=== PATIENT | male | born 1955 | race Caucasian/White ===

== ENCOUNTER → 2022-04-01 | Outpatient (CLI) | payer MEDICARE, OTHER ==
[2022-04-01 14:47] VITALS: BMI 35.6
== END ==
LOC: DBWHC3 13:25
PROVIDERS: ATTEND Internal Medicine
DX: E11.9 Type 2 diabetes mellitus without complications (principal); Z88.1 Allergy status to other antibiotic agents
CPT/HCPCS: G0108 ×3

== ENCOUNTER 2022-06-24 22:00 | Emergency (ER) | payer MEDICARE ==
[2022-06-24] MEDS ORDERED: FLUORESCEIN STRIPS 1 MG STRIP BOTH EYES ONE (22:10)
[2022-06-24] MEDS ORDERED: PROPARACAINE 0.5% OPHTH DROPS 15 ML BTL BOTH EYES STA (22:10)
[2022-06-24] MEDS ORDERED: ERYTHROMYCIN 5 MG/GM OPHTH OINT 3.5 GM TUBE BOTH EYES STA (22:11)
[2022-06-24] MEDS ORDERED: PROPARACAINE 0.5% OPHTH DROPS 15 ML BTL ONE (22:16)
[2022-06-24] MEDS ORDERED: DIPH,PERTUS(ACELL)TETVAC-LF 0.5 ML VIAL IM ONE (22:44)
--- NOTE | 2022-06-24 22:49 | ED ---
Eye Problem HPI - General Chief complaint: Eye Problems Stated complaint: left eye irritation Time Seen by Provider: 06/24/22 22:10 Source: patient Mode of arrival: ambulatory Limitations: no limitations - History of Present Illness Initial comments: This is a pleasant 67-year-old male who presents to emergency department after sustaining an injury to his left eye. Patient states he was grinding metal with a grinding wheel. Patient was not wearing safety glasses. Patient states this occurred about one hour ago. Patient feels like there is a foreign body in his right eye which is very irritating. Last tetanus is unknown. No other injuries. Patient does wear corrective vision. No headache, no fever or chills, no changes in vision or hearing, no sore throat or difficulty with speech, no neck pain, no chest pain or shortness of breath, no abdominal pain, no nausea or vomiting, no changes in urination or bowel movements, no numbness or tingling, no extremity pain, no skin rashes or lesions. Past medical, surgical, social, and family history reviewed. MD chief complaint: eye pain, eye redness, eye injury - Related Data Allergies Allergy/AdvReac Type Severity Reaction Status Date / Time amoxicillin [From Augmentin] Allergy Unknown Verified 06/24/22 22:09 clavulanic acid Allergy Unknown Verified 06/24/22 22:09 [From Augmentin] Review of Systems ROS Statement: Those systems with pertinent positive or pertinent negative responses have been documented in the HPI. ROS Other: All systems not noted in ROS Statement are negative. Past Medical History Past Medical History: Coronary Artery Disease (CAD), Diabetes Mellitus, GERD/Reflux, Hypertension, Prostate Disorder, Sleep Apnea/CPAP/BIPAP History of Any Multi-Drug Resistant Organisms: None Reported Additional Past Surgical History / Comment(s): Colonoscopy, mx foot surgeries, Past Psychological History: No Psychological Hx Reported Smoking Status: Never smoker Past Alcohol Use History: Occasional Past Drug Use History: None Reported General Exam - General Exam Comments Initial Comments: Minimal distress, does not appear to be ill or toxic. Vital signs reviewed Limitations: no limitations General appearance: alert, in distress (Minimal) Head exam: Present: atraumatic, normocephalic, normal inspection Eye exam: Present: PERRL, EOMI. Absent: scleral icterus, conjunctival injection, nystagmus, periorbital swelling, periorbital tenderness Pupils: Present: normal accommodation ENT exam: Present: normal exam, normal oropharynx, mucous membranes moist, TM's normal bilaterally, normal external ear exam. Absent: mucous membranes dry Neck exam: Present: normal inspection Respiratory exam: Present: normal lung sounds bilaterally. Absent: respiratory distress, wheezes, rales, rhonchi, stridor Cardiovascular Exam: Present: regular rate, normal rhythm, normal heart sounds. Absent: systolic murmur, diastolic murmur, rubs, gallop, clicks Extremities exam: Present: normal inspection Back exam: Present: normal inspection Neurological exam: Present: alert, oriented X3, CN II-XII intact, normal gait. Absent: motor sensory deficit Psychiatric exam: Present: normal affect, normal mood Skin exam: Present: warm, dry, intact, normal color. Absent: rash Course Vital Signs 06/24/22 22:04 Temperature 98.4 F Pulse Rate 63 Respiratory 22 Rate Blood Pressure 155/79 O2 Sat by Pulse 98 Oximetry Procedures - Forgein Body Removal Eye Site: Left Location in eye(s): Left eye Anesthetic Used: Proparacaine Eye Exam Technique: Fluorescein, Slit Lamp Foreign Body Suspected: Metal, Other (Rest ring) Forgein Body Removal Technique: Needle, [place]brush Remaining Debris: No Patient Tolerated: well Additional Comments: We'll order a CT the orbits as the patient was using a high velocity grinding wheel, metal, was not wearing safety glasses. There was no evidence of Katina's test on exam however. Anterior chamber was clear. Eye pressure was normal at 18 mmHg. Medical Decision Making - Medical Decision Making Tetanus was updated. CT of the orbits ordered. Patient will require reevaluation by the wait staff. Disposition Clinical Impression: Acute foreign body of left cornea, Corneal rust ring of left eye Disposition: HOME SELF-CARE Condition: Good Instructions (If sedation given, give patient instructions): Eye Foreign Body (ED) Additional Instructions: Antibiotic ointment, 1 cm to the affected eye every 6 hours until you see the wait staff. Follow-up with your regular physician as directed. Return to the ER immediately if any symptoms worsen, new symptoms arise, or any other problems develop. Is patient prescribed a controlled substance at d/c from ED?: No Referrals: Manuel Garcia MD [STAFF PHYSICIAN] - 06/25/22 8:00 am Time of Disposition: 00:21
[2022-06-24] MEDS ORDERED: ACETAMINOPHEN TAB 500 MG TAB PO STA (23:04)
--- NOTE | 2022-06-24 23:27 | CT ---
EXAMINATION TYPE: CT orbits wo con DATE OF EXAM: 06/24/2022 COMPARISON: None HISTORY: metal FB CT DLP: 321.2 mGycm Automated exposure control for dose reduction was used. Images obtained with no contrast from the bottom of the maxilla to the top of the frontal sinuses. FINDINGS: The orbital margins are intact. No evidence of orbital blowout fracture. No retro-orbital mass. The o rbital margins are intact. No evidence of orbital foreign body. The zygomatic arches appear normal. Maxilla is intact. No evidence of sinusitis. The nasal bone is in tact. IMPRESSION: Negative CT scan of the orbits. No evidence of orbital foreign body or mass.
[2022-06-25 00:35] VITALS: BP 144/84; PULSE 71; RESP 24; TEMP 98
== END 2022-06-25 00:33 | disposition home or self-care (01) ==
LOC: EC 22:00 → SUPCPDRO 22:00 → EC 06-25 00:33
DX: T15.92XA Foreign body on external eye, part unspecified, left eye, initial encounter (principal); Z23 Encounter for immunization; I25.10 Atherosclerotic heart disease of native coronary artery without angina pectoris; E11.9 Type 2 diabetes mellitus without complications; K21.9 Gastro-esophageal reflux disease without esophagitis; I10 Essential (primary) hypertension; Z88.0 Allergy status to penicillin; Z88.1 Allergy status to other antibiotic agents
CPT/HCPCS: 65222; 70480; 90471; 90715; 99283

== ENCOUNTER 2022-08-28 20:20 | Observation (INO) | payer MEDICARE ==
[2022-08-28] MEDS ORDERED: ASPIRIN 81 MG PO STA (20:49)
[2022-08-28] MEDS ORDERED: NITROGLYCERIN SL TABS 0.4 MG TAB SUBLINGUAL STA ×3 (20:49→21:23)
[2022-08-28] MEDS ORDERED: SODIUM CHLORIDE 0.9% 1,000 ML IV STA (20:49)
[2022-08-28 21:20] LABS: Basophils % (A) 0 %; Eosinophils # (A) 0.3 k/uL (0-0.7); Eosinophils % (A) 3 %; HCT 38.1 % (39.0-53.0); HGB 13.1 gm/dL (13.0-17.5); Lymphocytes # (A) 1.7 k/uL (1.0-4.8); Lymphocytes % (A) 18 %; MCH 28.6 pg (25.0-35.0); MCHC 34.3 g/dL (31.0-37.0); MCV 83.3 fL (80.0-100.0); Monocytes # (A) 0.4 k/uL (0-1.0); Monocytes % (A) 5 %; Neutrophils # (A) 6.8 k/uL (1.3-7.7); Neutrophils % (A) 73 %; Platelet Count 209 k/uL (150-450); RBC 4.58 m/uL (4.30-5.90); RDW 13.6 % (11.5-15.5); WBC 9.3 k/uL (3.8-10.6)
--- NOTE | 2022-08-28 21:21 | ED ---
Chest Pain HPI - General Chief Complaint: Chest Pain Stated Complaint: Chest pain Time Seen by Provider: 08/28/22 20:41 Source: patient Mode of arrival: wheelchair Limitations: no limitations - History of Present Illness Initial Comments: Patient is a 67-year-old male presenting with chief complaint of chest pain. History of CAD, diabetes, GERD, hypertension. Pain started about 2 hours ago. It is located in the center of the chest, it is a burning and heaviness in character. Patient has a history of blockage of the LAD, has not had any issues since 2013. He admits to nausea, difficulty breathing, GERD. He denies palpitations, dizziness, headache, radiation of pain down the arms, neck, or to the back. No vomiting. - Related Data Allergies Allergy/AdvReac Type Severity Reaction Status Date / Time amoxicillin [From Augmentin] Allergy Unknown Verified 08/28/22 20:23 clavulanic acid Allergy Unknown Verified 08/28/22 20:23 [From Augmentin] Review of Systems ROS Statement: Those systems with pertinent positive or pertinent negative responses have been documented in the HPI. ROS Other: All systems not noted in ROS Statement are negative. EKG Findings - EKG Comments: EKG Findings:: Sinus bradycardia. Ventricular rate 52. FL interval 168. QRS 100. QT 405. QTc 385. No ST deviation or T-wave inversion. This EKG was also interpreted by my attending. Past Medical History Past Medical History: Coronary Artery Disease (CAD), Diabetes Mellitus, GERD/Reflux, Hypertension, Prostate Disorder, Sleep Apnea/CPAP/BIPAP Additional Past Medical History / Comment(s): covid + 03/2022 History of Any Multi-Drug Resistant Organisms: None Reported Past Surgical History: Heart Catheterization With Stent Additional Past Surgical History / Comment(s): Colonoscopy, mx foot surgeries, Past Psychological History: No Psychological Hx Reported Smoking Status: Never smoker Past Alcohol Use History: Occasional Past Drug Use History: None Reported General Exam Limitations: no limitations General appearance: alert, in no apparent distress Head exam: Present: atraumatic, normocephalic, normal inspection Eye exam: Present: normal appearance Neck exam: Present: normal inspection Respiratory exam: Present: normal lung sounds bilaterally. Absent: respiratory distress, wheezes, rales, rhonchi, stridor Cardiovascular Exam: Present: regular rate, normal rhythm, normal heart sounds. Absent: systolic murmur, diastolic murmur, rubs, gallop, clicks Neurological exam: Present: alert, oriented X3, CN II-XII intact Psychiatric exam: Present: normal affect, normal mood Skin exam: Present: warm, dry, intact, normal color. Absent: rash Course Vital Signs 08/28/22 08/28/22 08/28/22 20:23 20:57 21:00 Temperature 97.8 F Pulse Rate 57 L 53 L Pulse Rate [ 52 L Family Consultant ] Respiratory 22 20 Rate Blood Pressure 170/67 162/85 O2 Sat by Pulse 98 98 Oximetry 08/28/22 08/28/22 21:30 22:08 Temperature Pulse Rate 51 L 49 L Pulse Rate [ Family Consultant ] Respiratory 18 18 Rate Blood Pressure 146/73 164/74 O2 Sat by Pulse 97 99 Oximetry Chest Pain MDM - MDM Condition is a 67-year-old male with history of CAD, diabetes, GERD, and hypertension presenting with chief complaint of chest pain. It started about 2 hours ago. It is a burning and heaviness in his chest with no radiation. Admits to some nausea no vomiting. On physical examination heart and lungs are clear to auscultation. Patient is bradycardic. He is given aspirin and nitroglycerin for the pain. EKG shows no ST deviation or T wave inversion. Troponin is less than 0.012. BNP is 202. CBC shows no leukocytosis or anemia. Coags are WNL. Magnesium is 1.4, patient is placed on IV replacement. Urine shows 3+ glucose. Chest x-ray shows no acute process. Patient will be admitted for observation as he had a heart sore of 6. He is agreeable with this plan, on reassessment patient reports improvement in pain, he is resting comfortably. I spoke with Dr. Wilson who agreed to admit the patient. I discussed this case with my attending Dr. Castillo Disposition Clinical Impression: Chest pain Disposition: ADMITTED IP TO THIS [facility] Condition: Fair Time of Disposition: 22:50 Decision to Admit Reason: Admit from EC Decision Date: 08/28/22 Decision Time: 22:50
[2022-08-28 21:24] LABS: INR 0.9 (<1.2); Prothrombin Time 10.3 sec (9.0-12.0)
[2022-08-28 21:27] LABS: ALT 63 U/L (4-49); AST 50 U/L (17-59); African American GFR (CKD) >90 (>60 ml/min/1.73 sqM); Albumin 4.3 g/dL (3.5-5.0); Alkaline Phosphatase 53 U/L (38-126); Amylase 71 U/L (30-110); Anion Gap 10 mmol/L; Blood Urea Nitrogen 10 mg/dL (9-20); Calcium 9.4 mg/dL (8.4-10.2); Carbon Dioxide 25 mmol/L (22-30); Chloride 103 mmol/L (98-107); Glucose 214 mg/dL (74-99); Lipase 421 U/L (23-300); Magnesium 1.4 mg/dL (1.6-2.3); Non-African American GFR(CKD) >90 (>60 ml/min/1.73 sqM); Potassium 4.3 mmol/L (3.5-5.1); Sodium 138 mmol/L (137-145); Total Bilirubin 0.4 mg/dL (0.2-1.3); Total Protein 6.3 g/dL (6.3-8.2)
[2022-08-28] MEDS ORDERED: Magnesium Replacement Protocol 1 EACH MISC MISCELLANE PRN (22:03)
[2022-08-28 22:11] LABS: Appearance,Urine Clear (Clear); Bilirubin,Urine Negative (Negative); Blood,Urine Negative (Negative); Color,Urine Colorless; Glucose,Urine (UA) 3+ (Negative); Ketones,Urine Negative (Negative); Leukocyte Esterase,Urine Negative (Negative); Nitrite,Urine Negative (Negative); Protein,Urine Negative (Negative); Specific Gravity,Urine 1.005 (1.001-1.035); Urobilinogen,Urine <2.0 mg/dL (<2.0)
[2022-08-28] MEDS ORDERED: NALOXONE 0.4 MG/ML 1 ML VIAL IV PRN (22:49)
--- NOTE | 2022-08-28 23:10 | XR ---
EXAMINATION TYPE: XR chest 2V DATE OF EXAM: 08/28/2022 COMPARISON: NONE HISTORY: Wrist pain TECHNIQUE: 2 views FINDINGS: Heart is normal. Lungs are clear. Diaphragm is normal. Bony thorax is intact. There are yarelis st leads. IMPRESSION: Normal chest.
[2022-08-28] MEDS: MAGNESIUM SULFATE-D5W PMX 1 GM in DEXTROSE/WATER 1 100ML.BAG IVPB SCH (23:17)
[2022-08-29] MEDS: MAGNESIUM SULFATE-D5W PMX 1 GM in DEXTROSE/WATER 1 100ML.BAG IVPB SCH ×2 (01:00→02:36)
--- NOTE | 2022-08-29 02:25 | P.HPIM ---
History of Present Illness H&P Date: 08/28/22 Chief Complaint: chest pain 67 year old male with CAD stents 2013, DM , Hypertension patient comes in due to sudden onset chest pain while washing dishes, describes as central non radiating squeezing burning chest pain , associated with SOB, nausea and palpitations, no vomiting, no dizziness, no profuse sweating. after pain onset, patient did not take anything, and he drove himself here to the hospital and pain improved after receiving meds inthe ED. he has not had any other episodes in a while, denies any recent cardiac workup. he reports recent trip to [facility] , just recently took a 20 [address] flight back to the [facility], denies any history of blood clots. workup in the ED , trops negative , EKG no acute ST changes Review of Systems Pertinent positives as noted in HPI. All other systems were reviewed and are negative Past Medical History Past Medical History: Coronary Artery Disease (CAD), Diabetes Mellitus, GERD/Reflux, Hypertension, Prostate Disorder, Sleep Apnea/CPAP/BIPAP Additional Past Medical History / Comment(s): covid + 03/2022 History of Any Multi-Drug Resistant Organisms: None Reported Past Surgical History: Heart Catheterization With Stent Additional Past Surgical History / Comment(s): Colonoscopy, mx foot surgeries, Past Psychological History: No Psychological Hx Reported Smoking Status: Never smoker Past Alcohol Use History: Occasional Past Drug Use History: None Reported - Past Family History familyi Additional Family Medical History / Comment(s): denies any cardiac history in his family Medications and Allergies Allergies Allergy/AdvReac Type Severity Reaction Status Date / Time amoxicillin [From Augmentin] Allergy Unknown Verified 08/28/22 20:23 clavulanic acid Allergy Unknown Verified 08/28/22 20:23 [From Augmentin] Physical Exam Vitals: Vital Signs Temp Pulse Pulse Resp BP Pulse Ox 08/29/22 01:30 45 L 17 138/70 96 08/29/22 00:55 51 L 18 134/66 98 08/29/22 00:30 49 L 23 134/66 96 08/28/22 23:30 50 L 24 151/76 97 08/28/22 22:08 49 L 18 164/74 99 08/28/22 22:00 54 L 26 H 150/78 98 08/28/22 21:30 51 L 18 146/73 97 08/28/22 21:00 53 L 20 162/85 98 08/28/22 20:57 52 L 08/28/22 20:23 97.8 F 57 L 22 170/67 98 Intake and Output 08/28/22 08/28/22 08/29/22 14:59 22:59 06:59 Other: Weight 113.398 kg Constitutional: No acute distress, conversant, pleasant Eyes: Anicteric sclerae, moist conjunctiva, Pupils equal round reactive to light ENMT: NC/AT Oropharynx clear, no erythema, or exudates Neck: Supple , no masses, or JVD No carotid bruits No thyromegaly Lungs: Clear to auscultation Clear to percussion Normal respiratory effort, no accessory muscle use Cardiovascular: Heart regular in rate and rhythm, No murmurs, gallops, or rubs No peripheral edema Abdominal: Soft Nontender, no guarding, rebound or rigidity Abdomen moving with respiration Normoactive bowel sounds No hepatomegaly, No splenomegaly No palpable mass No abdominal wall hernia noted Skin: Normal temperature, tone, texture, turgor No induration No subcutaneous nodules No rash, lesions No ulcers Extremities: No digital cyanosis No clubbing Pedal pulses intact and symmetrical Radial pulses intact and symmetrical No calf tenderness Psychiatric: Alert and oriented to person, place and time Appropriate affect fair judgement Neuro Muscles Strength 5/5 in all 4 extremities Sensation to light touch grossly present throughout Cranial nerves II-XII grossly intact Lymphatics: no palpable cervical or supraclavicular lymph nodes Results CBC & Chem 7: 08/28/22 20:55 08/28/22 20:55 Labs: Abnormal Lab Results - Last 24 Hours (Table) 08/28/22 08/28/22 08/28/22 Range/Units 20:55 20:55 22:06 Hct 38.1 L (39.0-53.0) % Glucose 214 H (74-99) mg/dL Magnesium 1.4 L (1.6-2.3) mg/dL ALT 63 H (4-49) U/L Lipase 421 H (23-300) U/L Urine Glucose (UA) 3+ H (Negative) Assessment and Plan Assessment: atypical chest pain rule out ACS EKG no acute changes CXR no acute pathology trops negative X2 monitoring engineer monitor vital signs ASA, statin cardiology consult A1c, lipid panel , TSH pain control Rule out venous thromboembolism due to recent long flight travel Check stat d-dimer Chronic conditions Diabetes mellitus, insulin sliding scale Hypertension Await verification of home medications Full code DVT prophylaxis heparin subcu 3 times a day
[2022-08-29] MEDS: INSULIN ASPART (NovoLOG) 100 UNIT/ML VIAL SQ SCH ×4 (08:36→20:19)
[2022-08-29] MEDS: HEPARIN SODIUM,PORCINE/PF 5,000 UNIT/0.5 ML SYRINGE SQ SCH ×2 (08:38→17:11)
[2022-08-29] MEDS: ASPIRIN 81 MG PO SCH (08:41)
[2022-08-29 08:43] LABS: Glucose,Whole Blood 105 mg/dL (70-110)
[2022-08-29] MEDS ORDERED: ATORVASTATIN 40 MG TAB PO SCH (09:00)
[2022-08-29 09:42] LABS: Chol/HDL Ratio 3.92 Ratio; LDL Cholesterol,Calculated 33.1 mg/dL (0.0-131.0)
[2022-08-29 12:01] LABS: Glucose,Whole Blood 175 mg/dL (70-110)
[2022-08-29] MEDS ORDERED: ALBUTEROL HFA INHALER INHALATION PRN (15:45)
[2022-08-29] MEDS ORDERED: ALBUTEROL NEBULIZED 2.5 MG/3 ML INHALATION PRN (15:45)
--- NOTE | 2022-08-29 16:00 | P.PN ---
Subjective Progress Note Date: 08/29/22 Patient is a 67-year-old male with coronary artery disease status post stenting in 2013, diabetes mellitus on oral medications, and hypertension who presented to the ER with complaints of chest pain similar to prior but needing stents. In the ER he underwent an extensive evaluation. On arrival he was in sinus bradycardia and blood pressure with mildly elevated at 170/67. Initial labor atory analysis was remarkable for a glucose of 214, magnesium 1.4, and lipase of 421. Initial troponin was negative. EKG was nonischemic. He received a dose of aspirin and arrangements are made for admission. Remainder of troponins were negative. Magnesium was replaced. Cardiology was consulted. Patient seen and examined at bedside. He has not had any recurrent chest pain since admission. He is very worried because this is similar to when he needed a stent in the past. He is unsure how his blood sugars have been running at home, he states that Dr. Antunez recently increased his metformin. General: nontoxic, no distress, appears at stated age, obese Derm: warm, dry Head: atraumatic, normocephalic, symmetric Eyes: EOMI, no lid lag, anicteric sclera Mouth: no lip lesion, mucus membranes moist Cardiovascular: S1S2 reg, no murmur, positive posterior tibial pulse bilateral, Lungs: CTA bilateral, no rhonchi, no rales , no accessory muscle use Abdominal: soft, nontender to palpation, no guarding, no appreciable organomegaly Ext: no gross muscle atrophy, trace edema (baseline per patient), no contractures Neuro: CN II-XI grossly intact, no focal neuro deficits Psych: Alert, oriented, appropriate affect Assessment/plan: Chest pain History of coronary artery disease -Aspirin, effient, statin, BB - cardio recs - tele Diabetes mellitus type 2, suboptimally controlled with A1c 8.2 -Hold metformin -Sliding-scale insulin -Follow blood sugars -Outpatient follow-up with Dr. Antunez. GERD -PPI Hypertension -Resume home meds -Follow blood pressures Hypomagnesemia, resolved Obesity with BMI 35.9 -Structured outpatient weight loss Currently awaiting cardiology evaluation. Objective - Vital Signs Vital signs: Vital Signs Temp 97.8 F 08/29/22 12:02 Pulse 49 L 08/29/22 12:02 Resp 123 H 08/29/22 12:02 BP 123/60 08/29/22 12:02 Pulse Ox 97 08/29/22 15:28 FiO2 21 08/29/22 15:28 Intake & Output 08/28/22 08/29/22 08/29/22 18:59 06:59 18:59 Weight 113.398 kg - Labs CBC & Chem 7: 08/28/22 20:55 08/28/22 20:55 Labs: Abnormal Lab Results - Last 24 Hours (Table) 08/28/22 08/28/22 08/28/22 Range/Units 20:55 20:55 22:06 Hct 38.1 L (39.0-53.0) % Glucose 214 H (74-99) mg/dL POC Glucose (mg/dL) (70-110) mg/dL Hemoglobin A1c (0.0-6.0) % Magnesium 1.4 L (1.6-2.3) mg/dL ALT 63 H (4-49) U/L Triglycerides (0.00-149.00) mg/dL VLDL Cholesterol, Calc (5.00-40.00) mg/dL HDL Cholesterol (40.00-60.00) mg/dL Lipase 421 H (23-300) U/L Urine Glucose (UA) 3+ H (Negative) 08/29/22 08/29/22 08/29/22 Range/Units 02:40 02:40 11:59 Hct (39.0-53.0) % Glucose (74-99) mg/dL POC Glucose (mg/dL) 175 H (70-110) mg/dL Hemoglobin A1c 8.2 H (0.0-6.0) % Magnesium (1.6-2.3) mg/dL ALT (4-49) U/L Triglycerides 248.00 H (0.00-149.00) mg/dL VLDL Cholesterol, Calc 49.60 H (5.00-40.00) mg/dL HDL Cholesterol 28.30 L (40.00-60.00) mg/dL Lipase (23-300) U/L Urine Glucose (UA) (Negative)
[2022-08-29] MEDS: PRASUGREL 10 MG TAB PO SCH (17:11)
[2022-08-29 17:21] LABS: Glucose,Whole Blood 173 mg/dL (70-110)
--- NOTE | 2022-08-29 18:29 | P.CRDCN ---
History of Present Illness History of present illness: HISTORY OF PRESENTING ILLNESS Patient is a pleasant 67-year-old male with history of hypertension and diabetes mellitus type 2 CAD status post PCI of LAD 2013 who presents secondary to chest pain. He states he was sitting still when he started to develop substernal burning sensation in chest pressure as well as associated nausea and shortness breath which felt similar to his prior stenting. He states it felt "exactly the same "and had symptoms off and on throughout the next few hours. He did come the emergency department and received nitro without any dramatic improvement however the pain day, and go and he did have some worsening when he got up to walk to the bathroom. He admits he has not had anything like this since his stenting 8 years ago. He does follow with Dr. Lindo. EKG shows sinus bradycardia with no specific ST or T wave abnormalities. Troponin normal 3. D-dimer normal. He does state he recently came back from a flight to [facility] [place][Note 2]. He has not had reoccurnce of chest pain since this AM. REVIEW OF SYSTEMS At the time of my exam: CONSTITUTIONAL: Denies fever or chills. CARDIOVASCULAR: +chest pain, +shortness of breath, no orthopnea, PND or palpitations. RESPIRATORY: Denies cough. GASTROINTESTINAL: Denies abdominal pain, diarrhea, constipation, nausea or vomiting. MUSCULOSKELETAL: Denies myalgias. NEUROLOGIC: Denies numbness, tingling or weakness. ENDOCRINE: Denies fatigue, weight change, polydipsia or polyurina. GENITOURINARY: Denies burning, hematuria or urgency with micturation. HEMATOLOGIC: Denies history of anemia or bleeding. PHYSICAL EXAMINATION Vital signs reviewed. CONSTITUTIONAL: No apparent distress. HEENT: Head is normocephalic. Pupils are equal, round. Sclerae anicteric. Mucous membranes of the mouth are moist. No JVD. No carotid bruit. CHEST EXAMINATION: Lungs are clear to auscultation. No chest wall tenderness is noted on palpation or with deep breathing. HEART EXAMINATION: Regular rate and rhythm. S1, S2 heard. No murmurs, gallops or rub. ABDOMEN: Soft, nontender. Positive bowel sounds. EXTREMITIES: 2+ peripheral pulses, no lower extremity edema and no calf tenderness. NEUROLOGIC EXAMINATION: Patient is awake, alert and oriented x3. ASSESSMENT 1. Off-and-on chest pain over the last 24 hours feeling "exactly the same "as his prior angina and somewhat worsened with walking to the bathroom concerning for unstable angina 2. CAD with prior history of PCI of LAD 2013 3. Hypertension 4. Hyperlipidemia 5. Diabetes mellitus type 2 PLAN Patient's workup thus far has been unremarkable with normal d-dimer normal troponins. His chest pain however feels similar to his prior angina and also having some worsening with minimal exertion. Discussed options including possible stress testing versus heart catheterization patient would prefer definitive diagnosis with heart catheterization which is reasonable given classic nature of symptoms. Check heart catheterization likely Wednesday. Check 2-D echo. Further recommendations follow. If he has recurrent chest pain nitro as needed and may need more urgent heart catheterization. Past Medical History Past Medical History: Coronary Artery Disease (CAD), Diabetes Mellitus, GERD/Reflux, Hypertension, Prostate Disorder, Sleep Apnea/CPAP/BIPAP Additional Past Medical History / Comment(s): covid + 03/2022 History of Any Multi-Drug Resistant Organisms: None Reported Past Surgical History: Heart Catheterization With Stent Additional Past Surgical History / Comment(s): Colonoscopy, mx foot surgeries, Date of Last Stent Placement:: 2013 Past Psychological History: No Psychological Hx Reported Smoking Status: Never smoker Past Alcohol Use History: Occasional Past Drug Use History: None Reported - Past Family History familyi Additional Family Medical History / Comment(s): denies any cardiac history in his family Medications and Allergies Home Medications Medication Instructions Recorded Confirmed Type Albuterol Inhaler [Ventolin Hfa 2 puff INHALATION RT-Q6H PRN 08/29/22 08/29/22 History Inhaler] Albuterol Nebulized [Ventolin 2.5 mg INHALATION RT-QID PRN 08/29/22 08/29/22 History Nebulized] Pantoprazole [Protonix] 40 mg PO DAILY 08/29/22 08/29/22 History Prasugrel [Effient] 10 mg PO DAILY 08/29/22 08/29/22 History Pravastatin Sodium [Pravachol] 40 mg PO DAILY 08/29/22 08/29/22 History Tamsulosin HCl [Flomax] 0.4 mg PO DAILY 08/29/22 08/29/22 History Triamterene/Hydrochlorothiazid 1 tab PO DAILY 08/29/22 08/29/22 History [Triamterene-Hctz 37.5-25 mg Tb] carvediloL [Coreg] 6.25 mg PO BID 08/29/22 08/29/22 History lisinopriL [Zestril] 20 mg PO BID 08/29/22 08/29/22 History metFORMIN HCL 1,000 mg PO BID 08/29/22 08/29/22 History modafiniL [Provigil] 200 mg PO BID 08/29/22 08/29/22 History Allergies Allergy/AdvReac Type Severity Reaction Status Date / Time amoxicillin [From Augmentin] Allergy Unknown Verified 08/29/22 12:38 clavulanic acid Allergy Unknown Verified 08/29/22 12:38 [From Augmentin] Physical Exam Vitals: Vital Signs Temp Pulse Pulse Resp BP BP Pulse Ox 08/29/22 15:59 77 20 148/78 98 08/29/22 15:28 97 08/29/22 15:00 98.3 F 52 L 16 157/74 97 08/29/22 12:02 97.8 F 49 L 123 H 123/60 99 08/29/22 11:02 60 16 137/68 99 08/29/22 09:50 68 16 142/68 98 08/29/22 08:31 53 L 16 132/65 98 08/29/22 06:24 48 L 18 142/55 98 08/29/22 05:00 46 L 18 140/69 97 08/29/22 04:10 50 L 20 140/69 99 08/29/22 02:30 52 L 20 126/63 91 L 08/29/22 02:00 56 L 08/29/22 01:30 45 L 17 138/70 96 08/29/22 00:55 51 L 18 134/66 98 08/29/22 00:30 49 L 23 134/66 96 08/28/22 23:30 50 L 24 151/76 97 08/28/22 22:08 49 L 18 164/74 99 08/28/22 22:00 54 L 26 H 150/78 98 08/28/22 21:30 51 L 18 146/73 97 08/28/22 21:00 53 L 20 162/85 98 08/28/22 20:57 52 L 08/28/22 20:23 97.8 F 57 L 22 170/67 98 FiO2 08/29/22 15:59 08/29/22 15:28 21 08/29/22 15:00 08/29/22 12:02 08/29/22 11:02 08/29/22 09:50 08/29/22 08:31 08/29/22 06:24 08/29/22 05:00 08/29/22 04:10 08/29/22 02:30 08/29/22 02:00 08/29/22 01:30 08/29/22 00:55 08/29/22 00:30 08/28/22 23:30 08/28/22 22:08 08/28/22 22:00 08/28/22 21:30 08/28/22 21:00 08/28/22 20:57 08/28/22 20:23 Intake and Output 08/29/22 08/29/22 08/29/22 06:59 14:59 22:59 Other: Weight 113.398 kg Results 08/28/22 20:55 08/28/22 20:55 Cardiac Enzymes 08/28/22 08/28/22 08/28/22 Range/Units 20:55 20:55 23:29 AST 50 (17-59) U/L Troponin I <0.012 <0.012 (0.000-0.034) ng/mL 08/29/22 Range/Units 02:40 AST (17-59) U/L Troponin I <0.012 (0.000-0.034) ng/mL Coagulation 08/28/22 Range/Units 20:55 PT 10.3 (9.0-12.0) sec APTT 25.0 (22.0-30.0) sec Lipids 08/29/22 Range/Units 02:40 Triglycerides 248.00 H (0.00-149.00) mg/dL Cholesterol 111.00 (0.00-200.00) mg/dL HDL Cholesterol 28.30 L (40.00-60.00) mg/dL Cholesterol/HDL Ratio 3.92 Ratio CBC 08/28/22 Range/Units 20:55 WBC 9.3 (3.8-10.6) k/uL RBC 4.58 (4.30-5.90) m/uL Hgb 13.1 (13.0-17.5) gm/dL Hct 38.1 L (39.0-53.0) % Plt Count 209 (150-450) k/uL Comprehensive Metabolic Panel 08/28/22 Range/Units 20:55 Sodium 138 (137-145) mmol/L Potassium 4.3 (3.5-5.1) mmol/L Chloride 103 (98-107) mmol/L Carbon Dioxide 25 (22-30) mmol/L BUN 10 (9-20) mg/dL Creatinine 0.72 (0.66-1.25) mg/dL Glucose 214 H (74-99) mg/dL Calcium 9.4 (8.4-10.2) mg/dL AST 50 (17-59) U/L ALT 63 H (4-49) U/L Alkaline Phosphatase 53 (38-126) U/L Total Protein 6.3 (6.3-8.2) g/dL Albumin 4.3 (3.5-5.0) g/dL Current Medications Generic Name Dose Route Start Last Admin Trade Name Freq PRN Reason Stop Dose Admin Albuterol Sulfate 2 puff 08/29/22 15:45 Albuterol Hfa Inhaler INHALATION RT-Q6H PRN Shortness Of Breath Albuterol Sulfate 2.5 mg 08/29/22 15:45 Albuterol Nebulized 2.5 Mg/3 Ml INHALATION RT-QID PRN Shortness Of Breath Aspirin 81 mg 08/29/22 09:00 08/29/22 08:41 Aspirin 81 Mg PO 81 mg DAILY SONIA Administration Carvedilol 6.25 mg 08/29/22 21:00 Carvedilol 6.25 Mg Tab PO BID [facility] Heparin Sodium (Porcine) 5,000 unit 08/29/22 08:00 08/29/22 17:11 Heparin Sodium,Porcine/Pf 5,000 Unit/0.5 Ml Syringe SQ 5,000 unit Q8HR SONIA Administration Insulin Aspart 0 unit 08/29/22 07:30 08/29/22 17:40 Insulin Aspart (Novolog) 100 Unit/Ml Vial SQ 3 unit ACHS SONIA Administration Protocol Lisinopril 20 mg 08/29/22 21:00 Lisinopril 20 Mg Tab PO BID [facility] Miscellaneous Information 1 each 08/28/22 22:03 Magnesium Replacement Protocol 1 Each Misc MISCELLANE DAILY PRN Per Protocol Protocol Naloxone HCl 0.2 mg 08/28/22 22:49 Naloxone 0.4 Mg/Ml 1 Ml Vial IV Q2M PRN Opioid Reversal Pantoprazole Sodium 40 mg 08/30/22 07:30 Pantoprazole 40 Mg Tablet PO DAILY@0730 SONIA Prasugrel 10 mg 08/29/22 16:00 08/29/22 17:11 Prasugrel 10 Mg Tab PO 10 mg DAILY SONIA Administration Pravastatin Sodium 40 mg 08/30/22 09:00 Pravastatin Sodium 40 Mg Tab PO DAILY SONIA Tamsulosin HCl 0.4 mg 08/30/22 09:00 Tamsulosin 0.4 Mg Cap.Er.24h PO DAILY SONIA Triamterene/Hydrochlorothiazide 1 each 08/30/22 09:00 Triamterene-Hctz 37.5-25mg 1 Each Tab PO DAILY SONIA Intake and Output 08/29/22 08/29/22 08/29/22 06:59 14:59 22:59 Other: Weight 113.398 kg Patient Weight 08/30/22 06:59 Weight 113.398 kg 08/28/22 20:55 08/28/22 20:55
[2022-08-29 20:17] LABS: Glucose,Whole Blood 194 mg/dL (70-110)
[2022-08-29] MEDS: lisinopriL 20 MG TAB PO SCH (20:19)
[2022-08-29] MEDS: carvediloL 6.25 MG TAB PO SCH (20:19)
[2022-08-30] MEDS: HEPARIN SODIUM,PORCINE/PF 5,000 UNIT/0.5 ML SYRINGE SQ SCH ×4 (00:25→23:44)
[2022-08-30] MEDS ORDERED: MELATONIN 3 MG TABLET PO STA (02:28)
[2022-08-30 06:19] LABS: Glucose,Whole Blood 117 mg/dL (70-110)
[2022-08-30] MEDS: INSULIN ASPART (NovoLOG) 100 UNIT/ML VIAL SQ SCH ×4 (06:21→20:24)
[2022-08-30] MEDS: PANTOPRAZOLE 40 MG TABLET PO SCH (06:34)
--- NOTE | 2022-08-30 08:04 | P.PN ---
Subjective HISTORY OF PRESENTING ILLNESS Patient is a pleasant 67-year-old male with history of hypertension and diabetes mellitus type 2 CAD status post PCI of LAD 2013 who presents secondary to chest pain. He states he was sitting still when he started to develop substernal burning sensation in chest pressure as well as associated nausea and shortness breath which felt similar to his prior stenting. He states it felt "exactly the same "and had symptoms off and on throughout the next few hours. He did come the emergency department and received nitro without any dramatic improvement however the pain day, and go and he did have some worsening when he got up to walk to the bathroom. He admits he has not had anything like this since his stenting 8 years ago. He does follow with Dr. Lindo. EKG shows sinus bradycardia with no specific ST or T wave abnormalities. Troponin normal 3. D-dimer normal. He does state he recently came back from a flight to [facility]. He has not had reoccurnce of chest pain since this AM. 08/30 Pt seen and examined. Patient denies any further chest pain or pressure. He did have some issues, sleep however then somewhat better today. No dyspnea. Plan for heart catheterization tomorrow. PHYSICAL EXAMINATION Vital signs reviewed. CONSTITUTIONAL: No apparent distress. HEENT: Head is normocephalic. Pupils are equal, round. Sclerae anicteric. Mucous membranes of the mouth are moist. No JVD. No carotid bruit. CHEST EXAMINATION: Lungs are clear to auscultation. No chest wall tenderness is noted on palpation or with deep breathing. HEART EXAMINATION: Regular rate and rhythm. S1, S2 heard. No murmurs, gallops or rub. ABDOMEN: Soft, nontender. Positive bowel sounds. EXTREMITIES: 2+ peripheral pulses, no lower extremity edema and no calf tenderness. NEUROLOGIC EXAMINATION: Patient is awake, alert and oriented x3. ASSESSMENT 1. Off-and-on chest pain over the last 24 hours feeling "exactly the same "as his prior angina and somewhat worsened with walking to the bathroom concerning for unstable angina 2. CAD with prior history of PCI of LAD 2013 3. Hypertension 4. Hyperlipidemia 5. Diabetes mellitus type 2 PLAN Chest pain similar to his prior angina and also having some worsening with minimal exertion. Check heart catheterization Wednesday. Check 2-D echo. Further recommendations follow. Monitor for any repeat chest pain Objective - Vital Signs Vital signs: Vital Signs Temp 98.0 F 08/30/22 02:41 Pulse 52 L 08/30/22 02:41 Resp 17 08/30/22 02:41 BP 161/73 08/30/22 02:41 Pulse Ox 95 08/30/22 02:41 FiO2 21 08/29/22 15:28 Intake & Output 08/29/22 08/30/22 08/30/22 18:59 06:59 18:59 Weight 113.398 kg Other: Voiding Method Toilet # Voids 2 - Labs CBC & Chem 7: 08/28/22 20:55 08/28/22 20:55 Labs: Abnormal Lab Results - Last 24 Hours (Table) 08/29/22 08/29/22 08/29/22 Range/Units 02:40 02:40 11:59 POC Glucose (mg/dL) 175 H (70-110) mg/dL Hemoglobin A1c 8.2 H (0.0-6.0) % Triglycerides 248.00 H (0.00-149.00) mg/dL VLDL Cholesterol, Calc 49.60 H (5.00-40.00) mg/dL HDL Cholesterol 28.30 L (40.00-60.00) mg/dL 08/29/22 08/29/22 08/30/22 Range/Units 17:20 20:16 06:18 POC Glucose (mg/dL) 173 H 194 H 117 H (70-110) mg/dL Hemoglobin A1c (0.0-6.0) % Triglycerides (0.00-149.00) mg/dL VLDL Cholesterol, Calc (5.00-40.00) mg/dL HDL Cholesterol (40.00-60.00) mg/dL
[2022-08-30] MEDS ORDERED: NITROGLYCERIN SL TABS 0.4 MG TAB SUBLINGUAL PRN (08:05)
[2022-08-30] MEDS ORDERED: ALPRAZolam 0.25 MG TAB PO PRN (08:05)
[2022-08-30] MEDS ORDERED: ALPRAZolam 0.5 MG TAB PO PRN (08:05)
[2022-08-30] MEDS ORDERED: ASPIRIN 325 MG TAB PO STA (08:05)
[2022-08-30] MEDS ORDERED: ATORVASTATIN 80 MG TAB PO STA (08:05)
[2022-08-30] MEDS: PRASUGREL 10 MG TAB PO SCH (08:30)
[2022-08-30] MEDS: ASPIRIN 81 MG PO SCH (08:30)
[2022-08-30] MEDS: PRAVASTATIN SODIUM 40 MG TAB PO SCH (08:30)
[2022-08-30] MEDS: TAMSULOSIN 0.4 MG CAP.ER.24H PO SCH (08:30)
[2022-08-30] MEDS: carvediloL 6.25 MG TAB PO SCH ×2 (08:30→20:24)
[2022-08-30] MEDS: TRIAMTERENE-HCTZ 37.5-25MG 1 EACH TAB PO SCH (08:30)
[2022-08-30] MEDS: lisinopriL 20 MG TAB PO SCH ×2 (08:41→20:24)
[2022-08-30 11:44] LABS: Glucose,Whole Blood 148 mg/dL (70-110)
--- NOTE | 2022-08-30 14:10 | P.PN ---
Subjective Progress Note Date: 08/30/22 Patient is a 67-year-old male with coronary artery disease status post stenting in 2013, diabetes mellitus on oral medications, and hypertension who presented to the ER with complaints of chest pain similar to prior but needing stents. In the ER he underwent an extensive evaluation. On arrival he was in sinus bradycardia and blood pressure with mildly elevated at 170/67. Initial labor atory analysis was remarkable for a glucose of 214, magnesium 1.4, and lipase of 421. Initial troponin was negative. EKG was nonischemic. He received a dose of aspirin and arrangements are made for admission. Remainder of troponins were negative. Magnesium was replaced. Cardiology was consulted and plans are for cardiac catheterization on 08/31/22. Patient seen and examined at bedside. Doing well. No recurrent chest pain overnight. No unusual shortness of breath. General: nontoxic, no distress, appears at stated age, obese Derm: warm, dry Head: atraumatic, normocephalic, symmetric Eyes: EOMI, no lid lag, anicteric sclera Mouth: no lip lesion, mucus membranes moist Cardiovascular: S1S2 reg, no murmur, positive posterior tibial pulse bilateral, Lungs: CTA bilateral, no rhonchi, no rales , no accessory muscle use Abdominal: soft, nontender to palpation, no guarding, no appreciable organomegaly Ext: no gross muscle atrophy, trace edema (baseline per patient), no contractures Neuro: CN II-XI grossly intact, no focal neuro deficits Psych: Alert, oriented, appropriate affect Assessment/plan: Chest pain History of coronary artery disease -Aspirin, effient, statin, BB - cardio recs: cath in AM - tele Diabetes mellitus type 2, suboptimally controlled with A1c 8.2 -Hold metformin -Sliding-scale insulin -Follow blood sugars -Outpatient follow-up with Dr. Freeman. GERD -PPI Hypertension -continue current meds -Follow blood pressures Hypomagnesemia, resolved Obesity with BMI 35.9 -Structured outpatient weight loss Home pending cath results Objective - Vital Signs Vital signs: Vital Signs Temp 98.2 F 08/30/22 13:10 Pulse 66 08/30/22 13:10 Resp 18 08/30/22 13:10 BP 103/64 08/30/22 13:10 Pulse Ox 96 08/30/22 13:10 FiO2 21 08/29/22 15:28 Intake & Output 08/29/22 08/30/22 08/30/22 18:59 06:59 18:59 Intake Total 236 Balance 236 Weight 113.398 kg Intake: Oral 236 Other: Voiding Method Toilet # Voids 2 2 - Labs CBC & Chem 7: 08/28/22 20:55 08/28/22 20:55 Labs: Abnormal Lab Results - Last 24 Hours (Table) 08/29/22 08/29/22 08/30/22 Range/Units 17:20 20:16 06:18 POC Glucose (mg/dL) 173 H 194 H 117 H (70-110) mg/dL 08/30/22 Range/Units 11:42 POC Glucose (mg/dL) 148 H (70-110) mg/dL
[2022-08-30 16:39] LABS: Glucose,Whole Blood 275 mg/dL (70-110)
[2022-08-30 19:38] LABS: Glucose,Whole Blood 221 mg/dL (70-110)
[2022-08-31 05:45] LABS: Glucose,Whole Blood 125 mg/dL (70-110)
[2022-08-31] MEDS: PANTOPRAZOLE 40 MG TABLET PO SCH (05:47)
[2022-08-31] MEDS ORDERED: ASPIRIN 325 MG TAB PO ONE (06:00)
[2022-08-31] MEDS ORDERED: ATORVASTATIN 80 MG TAB PO ONE (06:00)
[2022-08-31] MEDS: INSULIN ASPART (NovoLOG) 100 UNIT/ML VIAL SQ SCH ×2 (06:21→13:45)
[2022-08-31] MEDS ORDERED: HEPARIN SODIUM,PORCINE 10,000 UNIT in SODIUM CHLORIDE 0.9% 1,000 ML IRRIGATION PRN (07:00)
[2022-08-31] MEDS ORDERED: HEPARIN SODIUM,PORCINE 2,500 UNIT in SODIUM CHLORIDE 0.9% 250 ML IRRIGATION PRN (07:00)
[2022-08-31] MEDS: ASPIRIN 81 MG PO SCH (08:11)
[2022-08-31] MEDS: PRAVASTATIN SODIUM 40 MG TAB PO SCH (08:11)
[2022-08-31] MEDS: lisinopriL 20 MG TAB PO SCH (08:14)
[2022-08-31] MEDS: PRASUGREL 10 MG TAB PO SCH (08:14)
[2022-08-31] MEDS: carvediloL 6.25 MG TAB PO SCH (08:14)
[2022-08-31] MEDS: TAMSULOSIN 0.4 MG CAP.ER.24H PO SCH (08:14)
[2022-08-31] MEDS: HEPARIN SODIUM,PORCINE/PF 5,000 UNIT/0.5 ML SYRINGE SQ SCH ×2 (08:14→15:50)
--- NOTE | 2022-08-31 08:22 | P.PN ---
Subjective HISTORY OF PRESENTING ILLNESS Patient is a pleasant 67-year-old male with history of hypertension and diabetes mellitus type 2 CAD status post PCI of LAD 2013 who presents secondary to chest pain. He states he was sitting still when he started to develop substernal burning sensation in chest pressure as well as associated nausea and shortness breath which felt similar to his prior stenting. He states it felt "exactly the same "and had symptoms off and on throughout the next few hours. He did come the emergency department and received nitro without any dramatic improvement however the pain day, and go and he did have some worsening when he got up to walk to the bathroom. He admits he has not had anything like this since his stenting 8 years ago. He does follow with Dr. Lindo. EKG shows sinus bradycardia with no specific ST or T wave abnormalities. Troponin normal 3. D-dimer normal. He does state he recently came back from a flight to [facility]. He has not had reoccurnce of chest pain since this AM. 08/31 Patient seen and examined at bedside, denies any further chest pain. Vital signs are stable, blood pressure 153/57, heart rate 52, afebrile, oxygen saturations 100% on room air. No acute events overnight. Plan for cardiac catheterization with Dr. Stanton today. PHYSICAL EXAMINATION Vital signs reviewed. CONSTITUTIONAL: No apparent distress. HEENT: Head is normocephalic. Pupils are equal, round. Sclerae anicteric. Mucous membranes of the mouth are moist. No JVD. No carotid bruit. CHEST EXAMINATION: Lungs are clear to auscultation. No chest wall tenderness is noted on palpation or with deep breathing. HEART EXAMINATION: Regular rate and rhythm. S1, S2 heard. No murmurs, gallops or rub. ABDOMEN: Soft, nontender. Positive bowel sounds. EXTREMITIES: 2+ peripheral pulses, no lower extremity edema and no calf t enderness. NEUROLOGIC EXAMINATION: Patient is awake, alert and oriented x3. ASSESSMENT 1. Off-and-on chest pain over the last 24 hours feeling "exactly the same "as his prior angina and somewhat worsened with walking to the bathroom concerning for unstable angina 2. CAD with prior history of PCI of LAD 2013 3. Hypertension 4. Hyperlipidemia 5. Diabetes mellitus type 2 PLAN Chest pain similar to his prior angina and also having some worsening with minimal exertion. Plan for cardiac catheterization with Dr. Stanton today Check 2-D echo. Further recommendations follow. Nurse practitioner note has been reviewed by physician. Signing provider agrees with the documented findings, assessment, and plan of care. Objective - Vital Signs Vital signs: Vital Signs Temp 98 F 08/31/22 07:00 Pulse 52 L 08/31/22 07:00 Resp 14 08/31/22 07:00 BP 153/57 08/31/22 07:00 Pulse Ox 100 08/31/22 07:00 FiO2 21 08/29/22 15:28 Intake & Output 08/30/22 08/31/22 08/31/22 18:59 06:59 18:59 Intake Total 236 0 Balance 236 0 Intake: Oral 236 0 Other: Voiding Method Toilet # Voids 2 1 - Labs CBC & Chem 7: 08/28/22 20:55 08/28/22 20:55 Labs: Abnormal Lab Results - Last 24 Hours (Table) 08/30/22 08/30/22 08/30/22 Range/Units 11:42 16:37 19:37 POC Glucose (mg/dL) 148 H 275 H 221 H (70-110) mg/dL 08/31/22 Range/Units 05:44 POC Glucose (mg/dL) 125 H (70-110) mg/dL
[2022-08-31] MEDS ORDERED: VERAPAMIL 2.5 MG/ML 2 ML AMP ONE (09:14)
[2022-08-31] MEDS ORDERED: fentaNYL (PF) 50 MCG/ML 2 ML AMP ONE (09:20)
[2022-08-31] MEDS ORDERED: IV FLUID CONTINUATION 1,000 ML IV ONE (09:40)
[2022-08-31] MEDS ORDERED: MIDAZOLAM 2 MG/2 ML VIAL IV ONE (09:54)
[2022-08-31] MEDS ORDERED: fentaNYL (PF) 50 MCG/ML 2 ML AMP IV ONE (09:54)
[2022-08-31] MEDS ORDERED: LIDOCAINE 1% INJ 10MG/ML (5 ML VIAL-PF) SQ ONE (09:55)
[2022-08-31] MEDS ORDERED: VERAPAMIL SYRINGE (5 MG/10 ML) INTRAARTER ONE (09:56)
[2022-08-31] MEDS ORDERED: LIDOCAINE 1% INJ 10MG/ML (30 ML VIAL-PF) SQ ONE (10:09)
[2022-08-31] MEDS ORDERED: IOPAMIDOL-370 125ML BTL INJ ONE (10:33)
[2022-08-31] MEDS ORDERED: RX INFO: IV CONTRAST WAS GIVEN 1 EACH MISC MISCELLANE PRN ×2 (11:13→12:14)
[2022-08-31] MEDS ORDERED: SODIUM CHLORIDE 0.9% 1,000 ML IV SCH (11:15)
[2022-08-31 11:44] LABS: Glucose,Whole Blood 113 mg/dL (70-110)
[2022-08-31 11:48] VITALS: RESP 16; TEMP 97.4
--- NOTE | 2022-08-31 12:12 | P.DS ---
Providers Date of admission: 08/28/22 22:24 Expected date of discharge: 08/31/22 Attending physician: aKrissa Wilson MD Consults: 08/28/22 22:49 Consult Physician Urgent Consulting Provider: [facility] Consult Reason/Comments: chest pain Do you want consulting provider notified?: Yes Primary care physician: Reagan Stephenson MD Hospital Course: Discharge Diagnosis: Chest pain, non cardiac Probable Mild pancreatitis versus dyspepsia. History of coronary artery disease Diabetes mellitus type 2, suboptimally controlled with A1c 8.2 GERD Hypertension Hypomagnesemia, resolved Obesity with BMI 35.9 Hospital Course: Patient is a 67-year-old male with coronary artery disease status post stenting in 2013, diabetes mellitus on oral medications, and hypertension who presented to the ER with complaints of chest pain similar to prior but needing stents. In the ER he underwent an extensive evaluation. On arrival he was in sinus bradycardia and blood pressure with mildly elevated at 170/67. Initial laboratory analysis was remarkable for a glucose of 214, magnesium 1.4, and lipase of 421. Initial troponin was negative. EKG was nonischemic. He received a dose of aspirin and arrangements are made for admission. Remainder of troponins were negative. Magnesium was replaced. Cardiology was consulted and he underwent cardiac catheterization on 08/31/22 and did not require a stent. Was felt that his chest pain was likely noncardiac and consistent with mild pancreatitis secondary to elevated lipase at 432 versus some dyspepsia as he had recently returned from [facility]. Follow-up: Dr. Stanton in 1 week, Dr. Stephenson in 1 week. A1c is slightly elevated at 8.2. He is aware he needs to talk with Dr. Ann. He states they recently adjusted his medications. Patient seen and examined at bedside. No current chest pain. Still feeling slightly groggy. Vital signs reviewed and stable. General: nontoxic, no distress, appears at stated age Derm: warm, dry Head: atraumatic, normocephalic, symmetric Eyes: EOMI, no lid lag, anicteric sclera Mouth: no lip lesion, mucus membranes moist Cardiovascular: S1S2 reg, no murmur, positive posterior tibial pulse bilateral, Lungs: CTA bilateral, no rhonchi, no rales , no accessory muscle use Abdominal: soft, nontender to palpation, no guarding, no appreciable organomegaly Ext: no gross muscle atrophy, no edema, no contractures Neuro: CN II-XI grossly intact, no focal neuro deficits Psych: Alert, oriented, appropriate affect A total of 37 minutes of time were spent preparing this complex discharge summary. Patient was discharged on 08/31/22. Patient Condition at Discharge: Fair Plan - Discharge Summary Discharge Rx Participant: No New Discharge Prescriptions: Continue Pravastatin Sodium [Pravachol] 40 mg PO DAILY Prasugrel [Effient] 10 mg PO DAILY Pantoprazole [Protonix] 40 mg PO DAILY modafiniL [Provigil] 200 mg PO BID Albuterol Nebulized [Ventolin Nebulized] 2.5 mg INHALATION RT-QID PRN PRN Reason: Shortness Of Breath Albuterol Inhaler [Ventolin Hfa Inhaler] 2 puff INHALATION RT-Q6H PRN PRN Reason: Shortness Of Breath Tamsulosin HCl [Flomax] 0.4 mg PO DAILY metFORMIN HCL 1,000 mg PO BID lisinopriL [Zestril] 20 mg PO BID carvediloL [Coreg] 6.25 mg PO BID Triamterene/Hydrochlorothiazid [Triamterene-Hctz 37.5-25 mg Tb] 1 tab PO DAILY Discharge Medication List Albuterol Inhaler [Ventolin Hfa Inhaler] 2 puff INHALATION RT-Q6H PRN 08/29/22 [History] Albuterol Nebulized [Ventolin Nebulized] 2.5 mg INHALATION RT-QID PRN 08/29/22 [History] Pantoprazole [Protonix] 40 mg PO DAILY 08/29/22 [History] Prasugrel [Effient] 10 mg PO DAILY 08/29/22 [History] Pravastatin Sodium [Pravachol] 40 mg PO DAILY 08/29/22 [History] Tamsulosin HCl [Flomax] 0.4 mg PO DAILY 08/29/22 [History] Triamterene/Hydrochlorothiazid [Triamterene-Hctz 37.5-25 mg Tb] 1 tab PO DAILY 08/29/22 [History] carvediloL [Coreg] 6.25 mg PO BID 08/29/22 [History] lisinopriL [Zestril] 20 mg PO BID 08/29/22 [History] metFORMIN HCL 1,000 mg PO BID 08/29/22 [History] modafiniL [Provigil] 200 mg PO BID 08/29/22 [History] Follow up Appointment(s)/Referral(s): Reagan Stephenson MD [Primary Care Provider] - 1-2 days Rex Stanton MD [STAFF PHYSICIAN] - 09/07/22 8:45 am Patient Instructions/Handouts: *Surgery [facility] - After Heart Catheterization - Diet Assistant Instructions, After Radial Heart Catheterization (GEN) Activity/Diet/Wound Care/Special Instructions: Activity: as tolerated Diet: heart healthy, carb consistent Special Instructions: Please follow-up with Dr. Stephenson regarding your A1C results of 8.2 and further non cardiac work up for chest pain Resume Metformin on 09/02/22 Discharge Disposition: HOME SELF-CARE
--- NOTE | 2022-08-31 12:54 | CC ---
CARDIAC CATHETERIZATION REPORT INDICATIONS: Unstable angina in a patient with known CAD, status post prior stenting of the LAD. PROCEDURE NOTE: After obtaining informed consent, left heart catheterization, coronary angiogram were performed via the right femoral artery using size 4 right Bettina catheter and 3-1/2 left Bettina catheter. The patient tolerated the procedure well without any obvious immediate complications. Left femoral angiogram was performed and Angio-Seal was deployed for hemostasis. The patient received moderate conscious sedation, total sedation time was 29 minutes. I initially obtained right radial artery access using Seldinger technique. This access was obtained very easily and a 6-Danish sheath was placed. However, I could not advance the wire into the brachial artery, I could not even pass the Glidewire. Due to this, I decided to pursue a femoral cath. The patient will have a TR band done at the end of the procedure for the radial artery access site. FINDINGS: 1. Left ventricular end-diastolic pressure is 18 mm. There is no significant gradient across the aortic valve. 2. Left Ventriculogram: Left ventriculogram is not performed. 3. Angiographic Data: a.Left Main Coronary Artery: Left main coronary artery is a normal-sized vessel and is free of stenosis, divides into left anterior descending coronary artery and circumflex coronary artery. LAD was previously stented. There is mild nonobstructive disease involving LAD, but the stent itself appears patent. The diag is free of significant disease. Circumflex coronary artery is a nondominant vessel, shows mild non-obstructive CAD. The right coronary artery is a large dominant vessel that shows mild non-obstructive CAD. CONCLUSION: Patent stent within the LAD. PLAN: Patient's symptoms are probably noncardiac in origin and his management is going to be in the form of optimal medical therapy. MMODL / IJN: [id number] /
[2022-08-31] MEDS: TRIAMTERENE-HCTZ 37.5-25MG 1 EACH TAB PO SCH (13:44)
[2022-08-31 14:49] VITALS: BP 128/73
[2022-08-31 14:55] VITALS: PULSE 71
== END 2022-08-31 17:21 | disposition home or self-care (01) ==
LOC: EC 20:20 → 6NMEDSUR 22:24
PROVIDERS: ADMIT Internal Medicine; ATTEND Internal Medicine
DX: R07.89 Other chest pain (principal); I25.110 Atherosclerotic heart disease of native coronary artery with unstable angina pectoris; E11.9 Type 2 diabetes mellitus without complications; I10 Essential (primary) hypertension; K21.9 Gastro-esophageal reflux disease without esophagitis; N42.9 Disorder of prostate, unspecified; G47.30 Sleep apnea, unspecified; E78.5 Hyperlipidemia, unspecified; Z86.16 Personal history of COVID-19; Z95.5 Presence of coronary angioplasty implant and graft; Z88.0 Allergy status to penicillin; E66.9 Obesity, unspecified; E83.42 Hypomagnesemia; Z68.35 Body mass index [BMI] 35.0-35.9, adult
CPT/HCPCS: 96372 ×4; 96361; 96365; 96366; 99285; 36415; 94760; 93005; 93458; 85379; 83880; 80061; 80053; 82150; 83690; 83735 ×2; 84484 ×2; 85025; 85610; 85730; 81003; 83036; 71046; G0378 ×4; C1769 ×3; C1760; C1894 ×2; J2250; J2001 ×2; J3010; J3475 ×2; Q9967; J1644 ×3

== ENCOUNTER → 2022-10-09 | Outpatient (CLI) | payer MEDICARE ==
--- NOTE | 2022-10-09 14:19 | US ---
EXAMINATION TYPE: US carotid duplex BILAT DATE OF EXAM: 10/09/2022 COMPARISON: NONE CLINICAL HISTORY: I65.29 OCCLUSION AND STENOSIS OF UNSPECIFIED CAROTID. Pt states weakness TECHNIQUE: Carotid duplex ultrasound examination. Indirect Doppler criteria was utilized. FINDINGS: EXAM MEASUREMENTS: RIGHT: Peak Systolic Velocity (PSV) cm/sec ----- Right CCA: 88.1 ----- Right ICA: 112.1 ----- Right ECA: 61.6 ICA/CCA ratio: 1.3 RIGHT: End Diastole cm/sec ----- Right CCA: 16.9 ----- Right ICA: 34.4 ----- Right ECA: 0.0 LEFT: Peak Systolic Velocity (PSV) cm/sec ----- Left CCA: 105.1 ----- Left ICA: 99.1 ----- Left ECA: 88.6 ICA/CCA ratio: 0.9 LEFT: End Diastole cm/sec ----- Left CCA: 24.8 ----- Left ICA: 25.4 ----- Left ECA: 13.8 VERTEBRALS (direction of flow): Right Vertebral: Antegrade Left Vertebral: Antegrade Rhythm: Normal ALMOND BLANCHER NOTES: No significant stenosis seen bilaterally IMPRESSION: No clinically significant stenosis of the bilateral carotid arteries. Criteria for Assigning % of Stenosis / Diameter reduction (Estimation based on the indirect measurements of the internal carotid artery velocities (ICA PSV). 1. Normal (no stenosis)=ICA PSV < 125 cm/s: ratio < 2.0: ICA EDV<40 cm/s. 2. Less than 50% stenosis=ICA PSV < 125 cm/s: ratio < 2.0: ICA EDV<40 cm/s. 3. 50 to 69% stenosis=ICA PSV of 125 to 230 cm/s: ration 2.0 ? 4.0: ICA EDV 40-100 cm/s. 4. Greater than 70% stenosis to near occlusion= ICA PSV > 230 cm/s: ratio > 4.0: ICA EDV > 100 cm/s. 5. Near occlusion= ICA PSV velocities may be low or undetectable: variable ratio and ICA EDV. 6. Total occlusion=unable to detect flow.
== END | disposition home or self-care (01) ==
LOC: RADUSWWP 13:43
PROVIDERS: ATTEND Internal Medicine
DX: I65.23 Occlusion and stenosis of bilateral carotid arteries (principal)
CPT/HCPCS: 93880

== ENCOUNTER → 2023-02-26 | Outpatient (CLI) | payer MEDICARE ==
[2023-02-26 15:58] LABS: ALT 49 U/L (10-49); AST 32 U/L (14-35); African American GFR (CKD) 68.4 (60.0-200.0); Albumin 4.7 g/dL (3.8-4.9); Albumin/Globulin Ratio 2.16 (1.60-3.17); Alkaline Phosphatase 51 U/L (41-126); BUN/Creat Ratio 18.57 Ratio (12.00-20.00); Blood Urea Nitrogen 23.4 mg/dL (9.0-27.0); Calcium 9.4 mg/dL (8.7-10.3); Chloride 102 mmol/L (96-109); Chol/HDL Ratio 4.76 Ratio; Globulin 2.2 g/dL (1.6-3.3); Glucose 129 mg/dL (70-110); LDL Cholesterol,Calculated 76.1 mg/dL (0.0-131.0); Non-African American GFR(CKD) 59.1 (60.0-200.0); Potassium 5.3 mmol/L (3.5-5.5); Sodium 139 mmol/L (135-145); Total Protein 6.9 g/dL (6.2-8.2)
[2023-02-26 16:08] LABS: Basophils # (A) 0.03 X 10*3/uL (0.00-0.10); Basophils % (A) 0.4 %; Eosinophils # (A) 0.21 X 10*3/uL (0.04-0.35); Eosinophils % (A) 2.8 %; HCT 41.2 % (39.6-50.0); HGB 13.5 g/dL (13.0-17.0); Immature Grans, Automated 0.3 %; Lymphocytes # (A) 1.71 X 10*3/uL (0.90-5.00); Lymphocytes % (A) 22.6 %; MCH 28.4 pg (27.0-32.0); MCHC 32.8 g/dL (32.0-37.0); MCV 86.7 fL (80.0-97.0); Mean Platelet Volume 11.2 fL (9.5-12.2); Monocytes # (A) 0.51 X 10*3/uL (0.20-1.00); Monocytes % (A) 6.7 %; NRBC Per 100 WBC 0 /100 WBCS (0.0-0.0); Neutrophils # (A) 5.09 X 10*3/uL (1.80-7.70); Neutrophils % (A) 67.2 %; Platelet Count 210 X 10*3/uL (140-440); RBC 4.75 X 10*6/uL (4.40-5.60); RDW 14.1 % (11.5-14.5); WBC 7.57 X 10*3/uL (4.50-10.00)
== END | disposition home or self-care (01) ==
LOC: LABWHC1 10:49
PROVIDERS: ATTEND Internal Medicine
DX: Z12.5 Encounter for screening for malignant neoplasm of prostate (principal); Z11.59 Encounter for screening for other viral diseases; E11.9 Type 2 diabetes mellitus without complications; N40.0 Benign prostatic hyperplasia without lower urinary tract symptoms
CPT/HCPCS: 80061; 87522; 80053; 84443; 85025; 83036; 36415; G0103

== ENCOUNTER → 2023-08-03 | Outpatient (CLI) | payer MEDICARE ==
--- NOTE | 2023-08-03 15:08 | XR ---
EXAMINATION TYPE: XR foot complete RT DATE OF EXAM: 08/03/2023 COMPARISON: NONE HISTORY: Pain TECHNIQUE: Three views are submitted. FINDINGS: The osseous structures are intact. There is no acute fracture or dislocation. Mild to moderate hyp ertrophic arthropathy first MTP. 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 Plantar calcaneal spur. A vascular calcifications are noted. Small accessory ossicle al clark the dorsum of the first DIP joint. IMPRESSION: 1. Mild to moderate hypertrophic arthropathy first MTP. Heterotopic ossification along the upper romina in of the calcaneus.
== END | disposition home or self-care (01) ==
LOC: RADXRMAIN 14:45
PROVIDERS: ATTEND Internal Medicine
DX: M12.871 Other specific arthropathies, not elsewhere classified, right ankle and foot (principal); M79.671 Pain in right foot

== ENCOUNTER → 2024-01-19 | Outpatient (CLI) | payer MEDICARE ==
--- NOTE | 2024-01-19 22:10 | US ---
EXAMINATION TYPE: US liver DATE OF EXAM: 01/19/2024 COMPARISON: NONE CLINICAL INDICATION: Male, 68 years old with history of R74.01 ELEVATION OF LEVELS OF LIVER TRANSAMIN ASE L; TECHNIQUE: Multiple sonographic images of the right upper quadrant are obtained. FINDINGS: EXAM MEASUREMENTS: Liver Length: 18.9 cm Gallbladder Wall: 0.2 cm CBD: 0.5 cm Right Kidney: 11.2 x 5.3 x 5.4 cm Pancreas: Head and tail obscured by overlying bowel gas, echogenic in appearance Liver: Increased attenuation, decreased visualization of vessels suggestive of fatty infiltrate. He terogenous. Enlarged in size. Right lobe hypoechoic lesion= 2.9 x 2.8 x 2.0 cm. Cystic lesions see n with largest appearing as a cluster or septations = 1.4 x 1.4 x 1.2 cm . Gallbladder: No wall thickening. Echogenic lesion adjacent to wall near neck = 0.5 cm . This may b e a nonshadowing gallstone. Evidence for sonographic Jackson's sign: neg CBD: wnl Right Kidney: No hydronephrosis or masses seen IMPRESSION: 1. Complex cysts within the liver. Monitoring is recommended. 2. Hepatomegaly with moderate fatty infiltration of the liver. 3. Nonshadowing gallstone
== END | disposition home or self-care (01) ==
LOC: RADUSWWP 07:23
PROVIDERS: ATTEND Internal Medicine
DX: K76.0 Fatty (change of) liver, not elsewhere classified (principal); K80.20 Calculus of gallbladder without cholecystitis without obstruction; K76.89 Other specified diseases of liver; R16.0 Hepatomegaly, not elsewhere classified; R74.01 Elevation of levels of liver transaminase levels
CPT/HCPCS: 76705

== ENCOUNTER → 2024-08-21 | Outpatient (CLI) | payer MEDICARE ==
[2024-08-21 15:26] LABS: Chol/HDL Ratio 7.56 Ratio; Magnesium 1.9 mg/dL (1.5-2.4)
[2024-08-21 16:05] LABS: ALT 41 U/L (10-49); AST 35 U/L (14-35); Albumin 4.4 g/dL (3.8-4.9); Albumin/Globulin Ratio 1.91 Ratio (1.60-3.17); Alkaline Phosphatase 64 U/L (41-126); Blood Urea Nitrogen 15.6 mg/dL (9.0-27.0); Calcium 9.1 mg/dL (8.7-10.3); Carbon Dioxide 25.7 mmol/L (21.6-31.8); Chloride 97 mmol/L (96-109); Globulin 2.3 g/dL (1.6-3.3); Glucose 326 mg/dL (70-110); Potassium 5.1 mmol/L (3.5-5.5); Sodium 135 mmol/L (135-145); Total Bilirubin 0.8 mg/dL (0.3-1.2); Total Protein 6.7 g/dL (6.2-8.2)
--- NOTE | 2024-08-21 16:21 | US ---
EXAMINATION TYPE: US liver DATE OF EXAM: 08/21/2024 COMPARISON: 01/19/2024 CLINICAL INDICATION: Male, 69 years old with history of K76.89 LIVER CYST; liver cyst TECHNIQUE: Grayscale and color Doppler imaging of the right upper quadrant was performed. FINDINGS: EXAM MEASUREMENTS: Liver Length: 19.3 cm Gallbladder Wall: .2 cm CBD: .3. cm Right Kidney: 12.6 x 4.7 x 4.9 cm FURNITURE MOVER HELPER NOTES: Pancreas: Obscured by bowel gas Liver: Increased attenuation hypoechoic area seen 2.4 x 2.1 x 2.7 cm. Anechoic area with echogenic foci seen 1 cm. Gallbladder: Echogenic area in the neck 5 mm. Evidence for sonographic Jackson's sign: no CBD: wnl Right Kidney: wnl IMPRESSION: 1. Hepatocellular disease commonly relating to hepatic steatosis. 2. Hypoechoic area within the liver possibly representing focal fatty sparing versus comp case cyst. Further evaluation of liver MRI with IV contrast recommended. [facility], , 08/21/2024 4:19 PM
== END | disposition home or self-care (01) ==
LOC: RADUSWWP 09:04
PROVIDERS: ATTEND Internal Medicine
DX: K76.89 Other specified diseases of liver (principal); I10 Essential (primary) hypertension; E11.9 Type 2 diabetes mellitus without complications
CPT/HCPCS: 76705; 80053; 80061; 83036; 83721; 83735; 84443; 85025

== ENCOUNTER → 2024-09-09 | Outpatient (CLI) | payer MEDICARE ==
--- NOTE | 2024-09-11 18:16 | MR ---
EXAMINATION TYPE: MR liver wo/w con DATE OF EXAM: 09/09/2024 9:19 AM COMPARISON: Ultrasound study dated 08/21/2024. CLINICAL INDICATION: Male, 69 years old with history of K76.89 LIVER CYST; PHH, Abnormal US. TECHNIQUE: Multiplanar multi-sequence imaging was performed without contrast. Post contrast imaging was performed. Post IV contrast subtraction images were also submitted for review. IV Contrast: 10.5 mL Gadobutrol FINDINGS: LOWER CHEST: No gross irregularity. ABDOMEN Liver: Diffuse parenchymal signal loss on out of phase imaging compatible with severe steatosis. Niki ons of focal fatty sparing, most pronounced along the fissure and adjacent to the gallbladder fossa. T2 hyperintense lesion in the left hepatic lobe measuring 2.8 x 2.5 cm demonstrates early peripheral nodular enhancement with gradual centripetal fill in compatible with a benign hemangioma. No suspicio us liver lesion identified. Numerous additional tiny subcentimeter simple appearing cyst. Gallbladder and Bile ducts: No evidence for ductal dilation, or biliary stricture or evidence of chol edocholithiasis. The gallbladder is within normal limits. Pancreas: No ductal dilation. No evidence for solid mass. Spleen: Normal for size. Adrenal glands: Unremarkable. Kidneys: No evidence for obstructive uropathy. No suspicious renal masses. Simple cyst in the left ki dney measuring 19 mm. Retroaortic left renal vein. Stomach and Bowel: No evidence for bowel wall thickening or evidence for obstruction. Retroperitoneum/Peritoneum: No evidence of pneumoperitoneum or free fluid. Vasculature: No aortic aneurysm. Musculoskeletal: The osseous structures appear acutely intact. Altered level for lumbar spine degener ative changes. Lymph Nodes: No gross evidence for lymphadenopathy. Abdominal wall: Unremarkable. IMPRESSION:degenerative 1. Enhancing left hepatic lobe lesion measuring 2.8 x 2.5 cm demonstrating features most compatible with a benign hemangioma. 2. Additional small subcentimeter hepatic cysts and regions of focal fatty sparing. No suspicious li mike lesion is identified. 3. Severe hepatic steatosis. [facility], , 09/11/2024 6:14 PM
== END | disposition home or self-care (01) ==
LOC: RADMRIMAIN 07:57
PROVIDERS: ATTEND Internal Medicine
DX: K76.89 Other specified diseases of liver (principal); K76.0 Fatty (change of) liver, not elsewhere classified; N28.1 Cyst of kidney, acquired
CPT/HCPCS: 74183; A9585